=== PATIENT | male | born 1990 | race American Indian/Alaskan Native ===

== ENCOUNTER 2017-03-31 17:16 | Emergency (ER) | payer BC, OTHER ==
[2017-03-31 17:55] VITALS: BP 165/83
--- NOTE | 2017-03-31 17:56 | EDM.PDOC ---
ED HPI GENERAL MEDICAL PROBLEM - General Chief Complaint: Fever Stated Complaint: 48HRS HEADACHE/FEVER/SORE THROAT Time Seen by Provider: 03/31/17 17:50 Source of Information: Reports: Patient, RN, RN Notes Reviewed History Limitations: Reports: No Limitations - History of Present Illness INITIAL COMMENTS - FREE TEXT/NARRATIVE: Complaining of sore throat since yesterday. Report "high fever". Mild headache. Mild nausea. No abdominal pain. Location: Reports: Other (sore throat) Quality: Reports: Ache Severity: Severe Improves with: Reports: None Worsens with: Reports: None Associated Symptoms: Reports: No Other Symptoms Throat Pain Score (Numeric/FACES): 5 - Related Data Allergies Allergy/AdvReac Type Severity Reaction Status Date / Time Penicillins Allergy Unknown unknown Verified 03/31/17 17:54 Home Meds: Home Meds Lisinopril [Lisinopril] 10 mg PO DAILY 03/30/16 [History] Acetaminophen [Tylenol] 650 mg PO ASDIRECTED PRN 03/31/17 [History] Ibuprofen 400 mg PO ASDIRECTED PRN 03/31/17 [History] Past Medical History Cardiovascular History: Reports: Hypertension Endocrine/Metabolic History: Reports: Obesity/BMI 30+ - Infectious Disease History Infectious Disease History: Reports: Chicken pox Social & Family History - Family History Family Medical History: Noncontributory - Tobacco Use Smoking Status *Q: Never Smoker Second Hand Smoke Exposure: No - Caffeine Use Caffeine Use: Reports: Soda - Alcohol Use Days Per Week of Alcohol Use: 1 Number of Drinks Per Day: 2 Total Drinks Per Week: 2 - Recreational Drug Use Recreational Drug Use: No - Living Situation & Occupation Living situation: Reports: with family Occupation: employed ED ROS ENT - Review of Systems Review Of Systems: ROS reveals no pertinent complaints other than HPI. ED EXAM, ENT - Physical Exam Exam: See Below Exam Limited By: No Limitations General Appearance: Alert, WD/WN, No Apparent Distress Eye Exam: Bilateral Eye: Normal Inspection Ears: Normal External Exam, Normal Canal, Hearing Grossly Normal, Normal TMs Nose: Normal Inspection, Normal Mucousa, No Blood Mouth/Throat: Other (pharyngeal erythema with tonsillar exudates.) Head: Atraumatic, Normocephalic Neck: Normal Inspection, Supple, Non-Tender, Full Range of Motion Respiratory/Chest: No Respiratory Distress, Lungs Clear, Normal Breath Sounds, No Accessory Muscle Use, Chest Non-Tender Cardiovascular: Regular Rate, Rhythm GI/Abdominal: Other (benign obese abdomen) Back: Normal Inspection, Full Range of Motion Extremities: Normal Inspection, Normal Range of Motion, Non-Tender, No Pedal Edema, Normal Capillary Refill Neurological: Alert, Oriented, CN II-XII Intact, Normal Cognition, Normal Gait, Normal Reflexes, No Motor/Sensory Deficits Psychiatric: Normal Affect, Normal Mood Skin: Warm, Dry, Intact, Normal Color, No Rash Course - Vital Signs Last Recorded V/S: Last Vital Signs Temp 40.1 C H 03/31/17 18:16 Pulse 127 H 03/31/17 17:50 Resp 16 03/31/17 17:50 BP 165/83 H 03/31/17 17:50 Pulse Ox 97 03/31/17 17:50 - Orders/Labs/Meds Meds: Medications Discontinued Medications Generic Name Dose Route Start Last Admin Trade Name Kayleigh PRN Reason Stop Dose Admin Acetaminophen 650 mg 03/31/17 18:10 03/31/17 18:17 Tylenol PO 03/31/17 18:11 650 mg NOW ONE Administration Azithromycin 500 mg 03/31/17 18:37 03/31/17 19:08 Zithromax PO 03/31/17 18:38 500 mg ONETIME ONE Administration Ibuprofen 800 mg 03/31/17 18:10 03/31/17 18:16 Motrin PO 03/31/17 18:11 800 mg ONETIME ONE Administration Prednisone 60 mg 03/31/17 19:04 03/31/17 19:09 Prednisone PO 03/31/17 19:05 60 mg ONETIME ONE Administration Rapid strep: Positive. Influenza A/B: Negative. Departure - Departure Time of Disposition: 18:58 Disposition: Home, Self-Care 01 Condition: fair Clinical Impression: Strep pharyngitis - Discharge Information Instructions: Strep Throat, [id number] Referrals: PCP,Unobtain [Primary Care Provider] - Forms: ED Department Discharge Additional Instructions: Zithromax 250mg. Follow up in clinic in 2 days if not better.
[2017-03-31] MEDS ORDERED: Acetaminophen 325 MG Tab PO ONE (18:10)
[2017-03-31] MEDS ORDERED: Ibuprofen 800 MG Tab PO ONE (18:10)
[2017-03-31] MEDS ORDERED: Azithromycin 250 MG Tab PO ONE (18:37)
[2017-03-31] MEDS ORDERED: predniSONE 20 MG Tab PO ONE (19:04)
== END 2017-03-31 19:11 | disposition home or self-care (01) ==
LOC: DL.ED 17:16
DX: J02.0 Streptococcal pharyngitis (principal); I10 Essential (primary) hypertension; E66.9 Obesity, unspecified; Z88.0 Allergy status to penicillin; Z79.899 Other long term (current) drug therapy
CPT/HCPCS: 87430; 87804; 99283; A9270

== ENCOUNTER 2018-03-19 21:44 | Emergency (ER) | payer OTHER ==
--- NOTE | 2018-03-20 01:02 | ER ---
SUBJECTIVE: The patient is a 27-year-old male, who states he sustained a small laceration to his right thumb several weeks ago. It has gotten bumped multiple times, since that time, it has been slow to healing because of this. He bumped it again tonight and it began to bleed. He comes in for evaluation. No other trauma. No other issues. PAST MEDICAL HISTORY: Noncontributable. He does have hypertension and obesity. CURRENT MEDICATIONS: Include: 1. Lisinopril 10 mg p.o. daily. 2. Tylenol p.r.n. 3. Ibuprofen p.r.n. ALLERGIES: Penicillins, unknown why. SOCIAL HISTORY: Noncontributable. REVIEW OF SYSTEMS: Not remarkable. Negative with the exception of the laceration to the right thumb. No other abnormal bleeding. No other trauma. OBJECTIVE: Vital Signs: Stable. Afebrile. General: Talkative, smiling. Normal gait. Not remarkable. Extremities: Focused exam of the right thumb shows a ventral small old puncture wound looking type injury. It appears to be somewhat old which fits with his history of the injury being multiple weeks ago. There is slight oozing at the apex of the wound. It is mild. It is stoppable with pressure. It is treated by putting pressure and then cleaning it. It is then covered with Dermabond and there was no further bleeding. A Band-Aid was placed over this. ASSESSMENT: Right thumb laceration, nonacute. PLAN: Continue with daily dressings to prevent further abrasion or trauma to the area to allow it to fully heal. Wear a bandage or gloves at work. Tylenol or Motrin p.r.n. Follow up with PCP as needed. [facility] /[id number]
== END 2018-03-20 00:05 | disposition home or self-care (01) ==
LOC: DL.ED 21:44
DX: S61.011A Laceration without foreign body of right thumb without damage to nail, initial encounter (principal); I10 Essential (primary) hypertension; Z88.0 Allergy status to penicillin; E66.9 Obesity, unspecified; Z79.899 Other long term (current) drug therapy; X58.XXXA Exposure to other specified factors, initial encounter
CPT/HCPCS: 12001; 99282